=== PATIENT | male | born 1965 | race Caucasian/White ===

== ENCOUNTER 2018-07-19 18:17 | Emergency (ER) | payer OTHER ==
[~2018-07-19] VITALS: Wt 126.0 kg
[2018-07-19 18:47] VITALS: BP 140/84; PULSE 92; RESP 18
[2018-07-19] MEDS ORDERED: OFLO5DRO7 LEFT EAR (21:07)
[2018-07-19] MEDS ORDERED: IBUP-1542 PO (21:07)
--- NOTE | 2018-07-19 21:14 | ERD ---
ER Documentation Chief Complaint Chief Complaint EAR PAIN X'S 2 1/2 DAYS HPI 53-year-old male presents with left ear pain for the past 2 days. Patient has a history of allergies and states he has noticed a worsening left ear fullness and sharp pain over the past few days. He also reports some clear discharge and d ecreased hearing as well. Denies any associated fevers. Denies any trauma. denies any difficulty swallowing or breathing. Denies any other symptoms. Denies any significant history of diabetes or other past medical history. ROS All systems reviewed and are negative except as per history of present illness. Medications Home Meds Active Scripts Ofloxacin Otic (Ofloxacin Otic) 5 Ml Drops, 10 DROP LEFT EAR DAILY for 7 Days, #1 BOTTLE Prov:TAD SHULTZ PA-C 07/19/18 Ibuprofen* (Ibuprofen*) 600 Mg Tablet, 600 MG PO Q6H PRN for PAIN AND/OR INFLAMMATION, #30 TAB Prov:PATRICANDOMINIQUEUR N PA-C 07/19/18 Allergies Allergies: Coded Allergies: No Known Allergy (Unverified , 07/19/18) PMhx/Soc Medical and Surgical Hx: pt denies Medical Hx FmHx Family History: No diabetes Physical Exam Vitals Vital Signs Date Temp Pulse Resp B/P (MAP) Pulse Ox O2 O2 Flow FiO2 Time Delivery Rate 07/19/18 99.6 92 18 140/84 100 18:47 (102) Physical Exam Const: No acute distress Head: Atraumatic Eyes: Normal Conjunctiva ENT: + Left external auditory canal erythematous and edematous. No purulent discharge. Pain with manipulation of the pinna and tragus. No mastoid tenderness. TM is pearly. Right ear normal. Neck: Full range of motion. No meningismus. No LAD. Resp: Clear to auscultation bilaterally Cardio: Regular rate and rhythm, no murmurs Skin: No petechiae or rashes Back: No midline or flank tenderness Ext: No cyanosis, or edema Neur: Awake and alert Psych: Normal Mood and Affect Results 24 hrs Current Medications Medications Dose Sig/Tim Start Time Status Last (Trade) Ordered Route PRN Stop Time Admin Dose Reason Admin Ibuprofen 600 mg ONCE ONCE 07/19/18 (Motrin) PO 21:30 07/19/18 21:31 Procedures/MDM ED COURSE: The patient was given ibuprofen The medication was well tolerated and the patient had market improvement in symptoms. The patient remained stable throughout ED course. MEDICAL DECISION MAKIN-year-old male presents with symptoms consistent with left otitis externa. He has no fever here and vital signs are stable. No clinical evidence of otitis media, malignant otitis externa, TM perforation, mastoiditis or meningitis. Will treat with rx ofloxacin eardrops and ibuprofen for pain. Recommended follow-up with his primary care provider in 2 days, otherwise return here for any new or worsening symptoms. PRESCRIPTIONS: Ofloxacin, ibuprofen SPECIALIST FOLLOW UP RECOMMENDED: None Blood Pressure Assessment: Patient's blood pressure was elevated (>120/80) but appears stable without evidence of hypertension emergency or urgency. The patient was counseled about the risks of hypertension and urged to pursue outpatient monitoring and therapy within a week with their primary care physician. Departure Diagnosis: Primary Impression: Left otitis externa Otitis externa type: diffuse Chronicity: acute Qualified Codes: H60.312 - Diffuse otitis externa, left ear Condition: Stable Patient Instructions: External Ear Infection (Adult) Additional Instructions: Call your primary care doctor TOMORROW for an appointment during the next 2-4 days and bring all the information and medications prescribed. If the symptoms get worse and your provider is unavailable, return to the Emergency Department immediately. TAD SHULTZ PA-C July 19, 2018 21:14
[2018-07-19] MEDS ORDERED: IBUPROFEN 600 MG TAB PO ONE (21:30)
== END 2018-07-19 21:25 | disposition home or self-care (01) ==
LOC: FTE 18:17
DX: H60.312 Diffuse otitis externa, left ear (principal)
CPT/HCPCS: Z7502; Z7610; 99283